=== PATIENT | male | born 2000 | race Two or more races ===

== ENCOUNTER 2024-05-11 02:05 | Inpatient (IN) | payer BC, MEDICAID ==
[~2024-05-11] VITALS: Ht 185.4 cm; Wt 121.6 kg
[2024-05-11] MEDS: SODIUM CHLORIDE 0.9% 1,000 ML IV ONE (02:34)
[2024-05-11] MEDS ORDERED: NALOXONE HCL 0.4MG/ML 1ML VIAL IV PRN (02:45)
[2024-05-11 02:52] LABS: HEMATOCRIT. 44.3 % (42.0-52.0); HEMOGLOBIN. 15.5 g/dL (14.0-18.0); MEAN CORPUSCULAR HEMOGLOBIN 30.4 pg (28.0-32.0); MEAN CORPUSCULAR HGB CONC 35.1 g/dL (31.0-37.0); MEAN CORPUSCULAR VOLUME 86.5 fL (80.0-94.0); MEAN PLATELET VOLUME 9.5 fl (7.4-10.4); PLATELET 399 x1000/uL (130-400); RED BLOOD CELL COUNT 5.12 mill/uL (4.7-6.1); RED CELL DISTRIBUTION WIDTH 13.8 % (11.6-14.6); WHITE BLOOD COUNT 39.6 x1000/uL (4.5-11.0)
[2024-05-11 03:01] LABS: DIFFERENTIAL COMMENT 1
[2024-05-11 03:35] LABS: CHLORIDE 104 mEq/L (98-107); POTASSIUM 4.1 mEq/L (3.5-5.1); SODIUM 140 mEq/L (136-145)
[2024-05-11 03:36] LABS: CARBON DIOXIDE 19 mEq/L (21-32)
[2024-05-11 03:37] LABS: CALCIUM 9.2 mg/dL (8.7-10.4)
[2024-05-11 03:41] LABS: CREATININE 2.6 mg/dL (0.6-1.3); GLUCOSE 107 mg/dL (70-105); UREA NITROGEN BLOOD 19 mg/dL (9-23)
[2024-05-11 03:43] LABS: ACETAMINOPHEN < 2 ug/mL (10-30)
[2024-05-11 03:52] LABS: PLATELET ESTIMATE NORMAL
[2024-05-11 03:57] LABS: ETHANOL BLOOD < 10 mg/dL (<10)
[2024-05-11] MEDS: SODIUM CHLORIDE 0.9% (SEPSIS BOLUS) IV ONE (05:42)
[2024-05-11] MEDS: PIPERACILLIN/TAZO 3.375G/50ML 50 ML IV NR (05:52)
[2024-05-11 06:24] LABS: LACTIC ACID 3.3 mmol/L (0.4-2.0)
[2024-05-11] MEDS: VANCOMYCIN 1G PREMIX 200 ML IV SCH (06:30)
[2024-05-11] MEDS: SODIUM CHLORIDE 0.9% 1,000 ML IV SCH (10:15)
[2024-05-11 10:20] LABS: CLARITY URINE CLOUDY (CLEAR); COLOR URINE YELLOW (YELLOW); GLUCOSE URINE NEGATIVE (NEGATIVE); KETONES URINE NEGATIVE (NEGATIVE); LEUKOCYTE ESTERASE URINE NEGATIVE (NEGATIVE); NITRITE URINE NEGATIVE (NEGATIVE); OCCULT BLOOD URINE NEGATIVE (NEGATIVE); PH URINE 5.5 (4.5-8.0); PROTEIN URINE 2+ (NEGATIVE); SPECIFIC GRAVITY URINE 1.018 (1.005-1.030); UROBILINOGEN URINE 0.2 E.U./dL (0.2-1.0)
[2024-05-11 10:32] LABS: *AMPHETAMINES SCREEN URINE NEGATIVE (NEGATIVE); *BARBITURATES SCREEN URINE NEGATIVE (NEGATIVE); *BENZODIAZEPINES SCREEN URINE NEGATIVE (NEGATIVE); *COCAINE SCREEN URINE PRESUMPTIVE POSITIVE (NEGATIVE); CANNABINOID URINE SCREEN NEGATIVE (NEGATIVE); ECSTASY MDMA SCREEN URINE NEGATIVE (NEGATIVE); METHADONE URINE SCREEN NEGATIVE (NEGATIVE); OPIATES URINE SCREEN NEGATIVE (NEGATIVE); PHENCYCLIDINE URINE SCREEN NEGATIVE (NEGATIVE)
[2024-05-11] MEDS ORDERED: IPRATROPIUM/ALBUTEROL 0.5-3(2.5)MG/3ML NEB HHN PRN (11:00)
[2024-05-11 11:11] LABS: BACTERIA URINE TRACE
[2024-05-11 11:12] LABS: WBC URINE 0-2 /hpf (0-2)
[2024-05-11 11:13] LABS: RBC URINE NONE SEEN /hpf (0-2); SQUAMOUS EPITHELIAL CELL URINE RARE /lpf (RARE/1+)
[2024-05-11 11:19] LABS: BASOPHILS % 0.3 % (0.0-2.0); EOSINOPHILS % 0.1 % (0.0-5.0); HEMATOCRIT. 37.2 % (42.0-52.0); HEMOGLOBIN. 12.7 g/dL (14.0-18.0); LYMPHOCYTES % 16.8 % (20.0-50.0); MEAN CORPUSCULAR HEMOGLOBIN 29.7 pg (28.0-32.0); MEAN CORPUSCULAR HGB CONC 34.1 g/dL (31.0-37.0); MEAN CORPUSCULAR VOLUME 87.1 fL (80.0-94.0); MEAN PLATELET VOLUME 8.9 fl (7.4-10.4); MONOCYTES % 6.4 % (2.0-8.0); NEUTROPHILS % 76.4 % (40.0-76.0); PLATELET 259 x1000/uL (130-400); RED BLOOD CELL COUNT 4.28 mill/uL (4.7-6.1); RED CELL DISTRIBUTION WIDTH 13.9 % (11.6-14.6); WHITE BLOOD COUNT 17.7 x1000/uL (4.5-11.0)
[2024-05-11 11:33] LABS: POTASSIUM 4.4 mEq/L (3.5-5.1)
[2024-05-11 11:34] LABS: CALCIUM 8.1 mg/dL (8.7-10.4)
[2024-05-11 12:00] VITALS: BP 126/78; PULSE 88; RESP 18; TEMP 36.05844; O2SAT 98
[2024-05-11 12:34] LABS: CREATININE 1.5 mg/dL (0.6-1.3)
[2024-05-11 14:22] VITALS: BP 126/78; PULSE 88; RESP 18; TEMP 36.0844
[2024-05-11 16:00] VITALS: BP 120/61; PULSE 75; RESP 18; TEMP 36.72516; O2SAT 100
[2024-05-11] MEDS: PIPERACILLIN/TAZO 3.375G/50ML 50 ML IV SCH (16:06)
[2024-05-11 20:00] VITALS: BP 110/58; PULSE 77; RESP 19; TEMP 37.00296; O2SAT 99
[2024-05-12] VITALS: BP 106/66; PULSE 72; RESP 18; TEMP 36.55848; O2SAT 100
[2024-05-12 04:00] VITALS: BP 116/70; PULSE 79; RESP 19; TEMP 36.78072; O2SAT 98
[2024-05-12 07:11] LABS: CHLORIDE 107 mEq/L (98-107)
[2024-05-12 07:12] LABS: CARBON DIOXIDE 24 mEq/L (21-32); SODIUM 140 mEq/L (136-145)
[2024-05-12 07:18] LABS: GLUCOSE 94 mg/dL (70-105); UREA NITROGEN BLOOD 9 mg/dL (9-23)
[2024-05-12 08:00] VITALS: BP 133/82; PULSE 73; RESP 18; TEMP 36.72516; O2SAT 100
[2024-05-12 11:07] LABS: BASOPHILS % 0.5 % (0.0-2.0); HEMOGLOBIN. 12.3 g/dL (14.0-18.0); LYMPHOCYTES % 32.9 % (20.0-50.0); MEAN CORPUSCULAR HEMOGLOBIN 30.1 pg (28.0-32.0); MEAN CORPUSCULAR HGB CONC 34.2 g/dL (31.0-37.0); MEAN CORPUSCULAR VOLUME 88.1 fL (80.0-94.0); MEAN PLATELET VOLUME 9.9 fl (7.4-10.4); MONOCYTES % 8.5 % (2.0-8.0); NEUTROPHILS % 57.1 % (40.0-76.0); PLATELET 203 x1000/uL (130-400); RED BLOOD CELL COUNT 4.09 mill/uL (4.7-6.1); RED CELL DISTRIBUTION WIDTH 13.6 % (11.6-14.6); WHITE BLOOD COUNT 10.6 x1000/uL (4.5-11.0)
[2024-05-12] MEDS ORDERED: LEVO750T68 MT (11:59)
[2024-05-12 12:00] VITALS: BP 124/87; PULSE 87; RESP 19; TEMP 36.78072; O2SAT 96
[2024-05-12 13:38] VITALS: BP 125/80; PULSE 85; TEMP 98.2; O2SAT 98
== END 2024-05-12 14:50 | disposition home or self-care (01) | DRG 91 ==
LOC: ER 02:05 → 7EST 05:54
PROVIDERS: ADMIT Internal Medicine; ATTEND Internal Medicine
DX: G92.8 Other toxic encephalopathy (principal); J69.0 Pneumonitis due to inhalation of food and vomit; M62.82 Rhabdomyolysis; N17.9 Acute kidney failure, unspecified; D64.9 Anemia, unspecified; F14.90 Cocaine use, unspecified, uncomplicated; F19.10 Other psychoactive substance abuse, uncomplicated
CPT/HCPCS: 36415; 71045; 80048; 80305; 80307; 80320; 80329; 81003; 82550; 83605; 84145; 85025; 99291; J2543; J3370; J7030; G0480